=== PATIENT | male | born 1950 | race Caucasian/White ===

== ENCOUNTER 2025-02-07 11:00 | Outpatient (REF) | payer MEDICARE, SELFPAY ==
--- OUTSIDE RECORDS SUMMARY | 2025-02-07 13:56 | XMS_ITS | Clinical Summary ---
Author Organization [facility] Address [address] [place] [address] Phone Care Team Providers Care Technical Services Specialist Name Role Phone Leti Sifuentes MD Primary Care Provider [phone] Allergies No known active allergies Medications Eliquis 5 mg tablet Take 1 tablet (5 mg total) by mouth 2 (two) times a day. Active atorvastatin (LIPITOR) 40 mg tablet Take 1 tablet (40 mg total) by mouth 1 (one) time each day. Active metoprolol succinate (TOPROL-XL) 100 mg 24 hr tablet Take 1 tablet (100 mg total) by mouth 2 (two) times a day. 10/27/2024 Active valsartan (DIOVAN) 320 mg tablet Take 1 tablet (320 mg total) by mouth 1 (one) time each day. 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) 01/26/2025 Encounters Date Type Department Care Team Description 01/29/2025 1:58 PM EDT - 01/29/2025 11:59 PM EDT Hospital Encounter [facility] MRI [address] [place] [address] Monoallelic mutation of HFE gene; Elevated hematocrit Discharge Disposition: Home or Self Care 01/25/2025 Telephone [facility] Hematology Oncology [address] [place] [address] Radha Mccartney DO 01/19/2025 9:45 AM EDT Office Visit [facility] Hematology Oncology [address] [place] [address] Radha Mccartney DO Monoallelic mutation of HFE gene (Primary Dx); Elevated hematocrit 12/26/2024 11:00 AM EDT Office Visit [facility] Hematology Oncology [address] [place] [phone] Radha Mccartney DO Elevated hematocrit (Primary Dx); Elevated ferritin; Secondary polycythemia from Last 3 Months Surgical History Surgery Date Site/Laterality Comments CATARACT EXTRACTION Medical History Medical History Date Comments Hypertension Atrial fibrillation (CMS/HCC V24, CMS/HCC V28) Family History Medical History Relation Name Comments Breast cancer Mother Relation Name Status Comments Father Mother Social History Tobacco Use Types Packs/Day Years Used Date Smoking Tobacco: Never Smokeless Tobacco: Never Alcohol Use Standard Drinks/Week Comments Not Currently 0 (1 standard drink = 0.6 oz pur e alcohol) Sex and Gender Information Value Date Recorded Sex Assigned at Male 06/01/2024 8:34 AM EST Legal Sex Male 8:32 AM EST Gender Identity Male 06/01/2024 8:34 AM EST Sexual Orientation Not on file Obstetrics History Last Filed Vital Signs Vital Sign Reading Time Taken Comments Blood Pressure 142/96 01/19/2025 9:52 AM EDT Pulse 70 01/19/2025 9:52 AM EDT Temperature 36.6 C (97.8 F) 01/19/2025 9:52 AM EDT Respiratory Rate - - Oxygen Saturation 98% 01/19/2025 9:52 AM EDT Inhaled Oxygen Concentration - - Weight 113 kg (250 lb) 01/19/2025 9:52 AM EDT Height 193 cm (6' 4 ) 01/19/2025 9:52 AM EDT Body Mass Index 30.43 01/19/2025 9:52 AM EDT Plan of Treatment Upcoming Encounters Date Type Department Care Team (Late st Contact Info) Description 04/23/2025 9:15 AM EST Office Visit [facility] Hematology Oncology [address] [place] [phone] Radha Mccartney DO [address] [place] [phone] Health Maintenance Due Date Last Done Comments Colorectal Cancer Screening: Colonoscopy 1950 Zoster Vaccines (1 of 2) 09/09/2001 Depression Screening 04/12/2024 Falls Risk Assessment 06/01/2024 Hepatitis C Screening 06/01/2024 Medicare Annual Wellness Visit 06/01/2024 Social Influencers of Health Screening 06/01/2024 COVID-19 Vaccine ( season) 2024 01/15/2024, 01/07/2023, 01/03/2022, Additional history exists Influenza Vaccine (#1) 2024 Hypertension/CHF/CAD Annual BMP Blood Test 01/05/2026 01/05/2025, 01/05/2025, 06/07/2024, Additional history exists RSV Immunization Adult Patients (1 - 1-dose 75+ series) 09/09/2026 Cholesterol Screening (Lipid Panel) 01/05/2030 01/05/2025, 06/07/2024 DTaP,Tdap,and Td Vaccines (3 - Td or Tdap) 06/23/2033 06/24/2023, 06/30/2006 Pneumococcal Vaccine: 50+ Years Completed 05/16/2018, 04/09/2017, 04/09/2017 HIB Vaccines Aged Out No longer eligi ble based on patient's age to complete this topic HPV Vaccines Aged Out No longer eligi ble based on patient's age to complete this topic Hepatitis A Vaccines Aged Out No long er eligible based on patient's age to complete this topic Hepatitis B Vaccines Aged Out No long er eligible based on patient's age to complete this topic IPV Vaccines Aged Out No longer eligi ble based on patient's age to complete this topic MMR Vaccines Aged Out No longer eligi ble based on patient's age to complete this topic Meningococcal ACWY Vaccine Aged Out N o longer eligible based on patient's age to complete this topic Meningococcal B Vaccine Aged Out No l onger eligible based on patient's age to complete this topic RSV Immunization Patients Under 20 months Aged Out No longer eligible based on patient's age to complete this topic Varicella Vaccines Aged Out No longer eligible based on patient's age to complete this topic Procedures Procedure Name Priority Date/Time Associated Diagnosis Comments MR ABDOMEN WO AND W CONTRAST Routine 01/29/2025 2:56 PM EDT Monoallelic mutation of HFE gene Elevated hematocrit CBC WITH AUTO DIFFERENTIAL Routine 12/26/2024 11:28 AM EDT Elevated ferritin Elevated hematocrit JAK2 GENE, V617F MUTATION, QUANTITATIVE, MOLECULAR STUDY Routine 12/26/2024 11:28 AM EDT Elevated ferritin Elevated hematocrit Secondary polycythemia HEMOCHROMATOSIS MUTATION Routine 12/26/2024 11:28 AM EDT Elevated ferritin Elevated hematocrit LACTATE DEHYDROGENASE Routine 12/26/2024 11:28 AM EDT Elevated ferritin Elevated hematocrit FERRITIN Routine 12/26/2024 11:28 AM EDT Elevated ferritin Elevated hematocrit IRON AND TIBC Routine 12/26/2024 11:28 AM EDT Elevated ferritin Elevated hematocrit CBC AND DIFFERENTIAL Routine 12/26/2024 11:28 AM EDT Elevated ferritin Elevated hematocrit from Last 3 Months Results * MR Abdomen wo and w Contrast (01/29/2025 2:56 PM EDT) Anatomical Region Laterality Modality Body Magnetic Resonan ce 02/01/2025 12:5 2 PM EDT Addenda Addendum by Sam Ponce MD on 02/02/2025 3:54 PM EDT Addendum: The patient returned 02/02/25 4 supplementary scanning to allow quantitative iron assessment Axial R2* Region of interest 1-106 Region of interest 2-107 Region of interest 3-89 Average R2*equals 100.60 Liver iron concentration equals 1.619 mg/gm (normal range: 0.17-1.8) Axial T2* Region of interest 1-9.4 Region of interest 2-9.6 Region of interest 3-11.6 Average T2*equals 10.194 Liver iron concentration equals 1.588 mg/gm (normal range: 0.17-1.8) No MRI evidence of elevated quantitative liver iron -------- ADDENDUM -------- Dictated By: Sam Ponce Dictated Date: 02/02/2025 13:18 ET Assigned Physician: Sam Pnoce Reviewed and Electronically Signed By: Sam Ponce Signed Date: 02/02/2025 15:54 ET Workstation ID: [id number] Transcribed By: Self Edit Transcribed Date: 02/02/2025 13:42 ET Impressions 02/01/2025 5:24 PM EDT No imaging evidence of chronic liver disease. No convincing evidence of significant iron overload. Very slight interval increase in signal on the out of phase chemical shift imaging can be seen with mild increased iron. There are no imaging findings to suggest iron overload within the pancreas or myocardium Quantitative iron protocol was not performed. I have discussed the case with the water control supervisor who reports that the patient will be recalled for supplementary quantitative iron sequences -------- FINAL REPORT -------- Dictated By: Sam Ponce Dictated Date: 02/01/2025 12:52 ET Assigned Physician: Sam Ponce Reviewed and Electronically Signed By: Sam Ponce Signed Date: 02/01/2025 17:24 ET Workstation ID: [id number] Transcribed By: Self Edit Transcribed Date: 02/01/2025 13:07 ET Narrative 02/01/2025 5:24 PM EDT EXAMINATION: MRI ABDOMEN WITHOUT AND WITH IV CONTRAST CLINICAL INFORMATION: Hemachromatosis. Evaluate iron deposition in liver COMPARISON: None TECHNIQUE: Anatomic and fluid sensitive MR sequences of the abdomen were obtained on a high-field platform MRCP was not performed. Imaging before and after the IV administration of contrast. Amount of IV contrast: 20 mL Type of contrast: Dotarem Volume of contrast discarded: 0 mL FINDINGS: LIVER: The right lobe of the liver measures 18.0 cm. This is approximately one standard deviation above the mean expected. The liver contour is smooth. There are several circumscribed T2 intense nonenhancing lesions consistent with cysts. No suspicious features. There is no suspicious focal liver lesion. The T2 signal appears relatively normal. There is equivocal slight increase in signal on the out of phase chemical shift imaging. BILIARY TRACT: There is no cholelithiasis. There is no biliary dilation. MRCP: Not performed SPLEEN: The spleen measures 10.0 cm which is the mean expected. No focal abnormality. PANCREAS: The pancreas appears within normal limits in size, contour and signal. Specifically no evidence of iron deposition. ADRENAL GLANDS: Within normal limits KIDNEYS: There are numerous bilateral parapelvic cysts. There is no suspicious renal mass. There are some cortical cysts. GASTROINTESTINAL TRACT: No definite bowel wall thickening. No small bowel dilation. ABDOMINAL WALL: No significant hernia is appreciated. LYMPHOVASCULAR STRUCTURES AND FLUID: There is no abdominal aortic aneurysm. There are no enlarged lymph nodes. There is no free intraperitoneal fluid. MUSCULOSKELETAL: No acute or suspicious osseous abnormality. VISUALIZED LOWER CHEST: No suspicious abnormality. No convincing signal abnormality within the myocardium to suggest iron overload. Procedure Note Sam Ponce MD - 02/01/2025 EXAMINATION: MRI ABDOMEN WITHOUT AND WITH IV CONTRAST CLINICAL INFORMATION: Hemachromatosis. Evaluate iron deposition in liver COMPARISON: None TECHNIQUE: Anatomic and fluid sensitive MR sequences of the abdomen were obtained alvaro high- field platform MRCP was not performed. Imaging before and after the IV administration of contrast. Amount of IV contrast: 20 mL Type of contrast: Dotarem Volume of contrast discarded: 0 mL FINDINGS: LIVER: The right lobe of the liver measures 18.0 cm. This isapproximately one standard deviation above the mean expected. The livercontour is smooth. There are several circumscribed T2 intense nonenhancing lesions consistentwith cysts. No suspicious features. There is no suspicious focal liver lesion. The T2 signal appears relatively normal. There is equivocal slightincrease in signal on the out of phase chemical shift imaging. BILIARY TRACT: There is no cholelithiasis. There is no biliarydilation. MRCP: Not performed SPLEEN: The spleen measures 10.0 cm which is the mean expected. No focalabnormality. PANCREAS: The pancreas appears within normal limits in size, contour andsignal. Specifically no evidence of iron deposition. ADRENAL GLANDS: Within normal limits KIDNEYS: There are numerous bilateral parapelvic cysts. There is nosuspicious renal mass. There are some cortical cysts. GASTROINTESTINAL TRACT: No definite bowel wall thickening. No small boweldilation. ABDOMINAL WALL: No significant hernia is appreciated. LYMPHOVASCULAR STRUCTURES AND FLUID: There is no abdominal aorticaneurysm. There are no enlarged lymph nodes. There is no freeintraperitoneal fluid. MUSCULOSKELETAL: No acute or suspicious osseous abnormality. VISUALIZED LOWER CHEST: No suspicious abnormality. No convincing signalabnormality within the myocardium to suggest iron overload. IMPRESSION: No imaging evidence of chronic liver disease. No convincing evidence of significant iron overload. Very slight intervalincrease in signal on the out of phase chemical shift imaging can be seenwith mild increased iron. There are no imaging findings to suggest iron overload within the pancreasor myocardium Quantitative iron protocol was not performed. I have discussed the casewith the water control supervisor who reports that the patient will be recalled forsupplementary quantitative iron sequences -------- FINAL REPORT -------- Dictated By: Sam Ponce Dictated Date: 02/01/2025 12:52 ET Assigned Physician: Sam Ponce Reviewed and Electronically Signed By: Sam Ponce Signed Date: 02/01/2025 17:24 ET Workstation ID: [id number] Transcribed By: Self Edit Transcribed Date: 02/01/2025 13:07 ET Radha Mccartney DO [facility] MRI PROCEDURES Ed ited Result - Final * JAK2 gene, V617F mutation, quantitative, molecular study (12/26/2024 11:28 AM EDT) Pathologist [facility] JAK2 (V617F) Mutation Not detected Not detected 12/29/2024 1:59 PM EDT [facility] WBC Percent with V617F Mutation <0.1 <0.1 % 12/29/2024 1:59 PM EDT [facility] Comment: This procedure uses real-time polymerase chain reaction amplification and detection to quantify the percentage of white blood cells containing the V617F (G>T at position 617) point mutation in the autoinhibitory pseudokinase domain of the JAK2 protein. The lower limit of quantitation is 0.1% (1 in 1000 cells). A Not detected result does not preclude the presence of this or another point mutation in this gene. This test uses commercial reagents that have not been approved or cleared by the FDA. The FDA has determined that such clearance or approval is not necessary. The performance characteristics of this procedure were determined by [employer]. This test is performed pursuant to a license agreement with [employer] Test performed at [facility] [employer] [facility], [facility] [place] [address] Tisha Dickson MD, PhD - [employer] Operator Blood Venous blood specimen / Unknown Venipuncture / Unknown 12/26/2024 11:28 AM EDT 12/26/2024 1:45 PM EDT Radha Mccartney DO LAB MOLECULAR DIAGNOS TICS ORDERABLES Final Result [facility] [address] [place] [address] * CBC auto differential (12/26/2024 11:28 AM EDT) WBC 7.8 4.8 - 10.8 K/mcL LAB HEMETOLOGY METHOD 12/26/2024 1:53 PM EDT [facility] RBC 5.50 4.50 - 5.50 M/mcL LAB HEMETOLOGY METHOD 12/26/2024 1:53 PM EDT [facility] Hemoglobin 17.3 13.5 - 17.5 g/dL LAB HEMETOLOGY METHOD 12/26/2024 1:53 PM EDT [facility] Hematocrit 51.0 42.0 - 54.0 % LAB HEMETOLOGY METHOD 12/26/2024 1:53 PM EDT [facility] MCV 92.7 79.0 - 98.0 FL LAB HEMETOLOGY METHOD 12/26/2024 1:53 PM EDT [facility] MCH 31.5 27.0 - 32.0 pcg LAB HEMETOLOGY METHOD 12/26/2024 1:53 PM EDT [facility] MCHC 33.9 32.0 - 37.0 g/dL LAB HEMETOLOGY METHOD 12/26/2024 1:53 PM EDT [facility] RDW 12.4 11.0 - 15.0 % LAB HEMETOLOGY METHOD 12/26/2024 1:53 PM EDT [facility] Platelets 220 130 - 400 K/mcL LAB HEMETOLOGY METHOD 12/26/2024 1:53 PM EDT [facility] MPV 9.0 7.0 - 11.0 FL LAB [facility] 0.0 <1.0 % [facility] NR[facility] Absolute 0.00 <0.10 K/mcL LAB [facility]Y METHOD [facility]24 [facility] Neutrophils Relative 67.8 % LAB HEMETOLOGY METHOD 12/26/2024 1:53 PM [facility] Lymphocytes Relative 21.2 % LAB HEMETOLOGY METHOD 12/26/2024 1:53 PM [facility] Monocytes Relative 9.7 % LAB HEMETOLOGY METHOD 12/26/2024 1:53 PM [facility] Eosinophils Relative 0.4 % LAB HEMETOLOGY METHOD 12/26/2024 1:53 PM [facility] Basophils Relative 0.5 % LAB HEMETOLOGY METHOD 12/26/2024 1:53 PM [facility] Immature Granulocytes Relative 0.4 % LAB [facility]Y [facility] Neutrophils Absolute 5.31 1.50 - 7.00 K/mcL LAB HEMETOLOGY METHOD [facility]/26[facility]24 [facility] Lymphocytes Absolute 1.66 1.00 - 5.00 K/mcL LAB HEMETOLOGY METHOD 12/26/2024 1:53 PM [facility] Monocytes Absolute 0.76 0.20 - 1.00 K/mcL LAB [facility]EM[facility]Y METHOD [facility]24 [facility] Eosinophils Absolute 0.03 0.00 - 0.50 K/mcL LAB HEMETOLOGY METHOD 12/26/2024 1:53 PM EDT [facility] Basophils Absolute 0.04 0.00 - 0.20 K/mcL LAB HEMETOLOGY METHOD 12/26/2024 1:53 PM EDT [facility] Immature Granulocytes Absolute 0.03 0.00 - 0.03 K/mcL LAB HEMETOLOGY METHOD 12/26/2024 1:53 PM EDT [facility] Blood Venous blood specimen / Unknown Venipuncture / Unknown 12/26/2024 11:28 AM EDT 12/26/2024 1:45 PM EDT us Radha Cookie Mccartney DO LAB BLOOD ORDERABLES Final Result [facility] [address] [place] [address], * Hemochromatosis mutation (12/26/2024 11:28 AM EDT) Hereditary Hemochromatosis See Below 01/05/2025 10:38 PM EDT [facility] Comment: RESULT: POSITIVE FOR ONE HFE GENE PATHOGENIC VARIANT: C282Y (HETEROZYGOTE) Interpretation: One copy of the C282Y pathogenic variant in the HFE gene was detected. This patient is negative for the H63D pathogenic variant. Individuals with this genotype may have elevated serum transferrin iron saturation levels. This result reduces the likelihood of hereditary hemochromatosis (HH). However, it does not rule out the presence of other pathogenic variants within the HFE gene or a diagnosis of HH. The risk of this individual to carry an HFE pathogenic variant other than those tested in this assay depends greatly on family and clinical history as well as ethnicity. This assay does not test for other primary or secondary iron overload disorders. Consider genetic counseling and DNA testing for at-risk family members. Laboratory results and submitted clinical information reviewed by Rabia Hills, PhD, [facility]. DETAILED ASSAY INFORMATION: Hereditary hemochromatosis (HH) is an autosomal recessive disorder of iron metabolism that can result in iron overload and potential organ failure. It is one of the most common genetic disorders in individuals of - ancestry, with an estimated carrier frequency of 10%. HH is caused by pathogenic variants in the HFE gene. Most individuals with HH (60-90%) are homozygous for the C282Y pathogenic variant. A smaller percentage of affected individuals are either compound heterozygous for the C282Y and H63D pathogenic variants (3%-8%), or homozygous for the H63D pathogenic variant (approximately 1%). METHODOLOGY: This assay detects two pathogenic variants in the HFE gene, C282Y (NM 538474.2: c.845G>A, p.Tpm508Rmf) and H63D (NM 213385.2: c.187C>G, p.Vtv97Lpt), that are commonly associated with HH. These variants are detected by multiplex-polymerase chain reaction (PCR) amplification, followed by restriction enzyme digestion and capillary electrophoresis. LIMITATIONS: This assay does not detect other pathogenic variants in the HFE gene that may be associated with HH. Although rare, false positive or false negative results may occur. All results should be interpreted in the context of clinical findings, relevant history, and other laboratory data. Health care providers, please contact your local [facility] genetic counselor or call [phone] ( ) for assistance with the interpretation of these results. This test was developed and its analytical performance characteristics have been determined by [facility]. It has not been cleared or approved by FDA. This assay has been validated pursuant to the CLIA regulations and is used for clinical purposes. For more information, please refer to http://education.[employer]Card.[employer]Linxx/faq/hemochromatosis. (This link is being provided for informational/educational purposes only.) A portion of the testing was performed at [facility]. Reviewed and signed by Laboratory results and submitted clinical information reviewed by Rabia Hills, PhD, [facility], Signed on 01/05/2025 at 16:29 Test Performed at: [facility] [address] [place] [address] Jennifer Barbosa MD, PhD, CLIF Blood Venous blood specimen / Unknown Venipuncture / Unknown 12/26/2024 11:28 AM EDT 12/26/2024 1:45 PM EDT us Radha Mccartney DO LAB MOLECULAR DIAGNOS TICS ORDERABLES Final Result [facility] [address] [place] [address] * Iron and TIBC (12/26/2024 11:28 AM EDT) Iron 158 50 - 160 mcg/dL LAB CHEMISTRY METHOD 12/26/2024 2:06 PM EDT [facility] TIBC 349 250 - 450 mcg/dL LAB CHEMISTRY METHOD 12/26/2024 2:06 PM EDT [facility] Iron Saturation 45 20 - 50 % LAB CHEMISTRY METHOD 12/26/2024 2:06 PM EDT [facility] Blood Venous blood specimen / Unknown Venipuncture / Unknown 12/26/2024 11:28 AM EDT 12/26/2024 1:45 PM EDT us Radha Mccartney DO LAB BLOOD ORDERABLES Final Result Performing Organization Address [facility]/ZIP Co de Phone Number [facility] [address] [place] [address], * Lactate dehydrogenase (12/26/2024 11:28 AM EDT) LDH 221 120 - 246 unit/L LAB CHEMISTRY METHOD 12/26/2024 2:06 PM EDT [facility] Blood Venous blood specimen / Unknown Venipuncture / Unknown 12/26/2024 11:28 AM EDT 12/26/2024 1:45 PM EDT us Radha Mccartney DO LAB BLOOD ORDERABLES Final Result [facility] [address] [place] [address], [place] [phone] * Ferritin (12/26/2024 11:28 AM EDT) Ferritin 360 26 - 388 ng/mL LAB CHEMISTRY METHOD 12/26/2024 2:06 PM EDT [facility] Blood Venous blood specimen / Unknown Venipuncture / Unknown 12/26/2024 11:28 AM EDT 12/26/2024 1:45 PM EDT us Radha Mccartney DO LAB BLOOD ORDERABLES Final Result [facility] [address] [place] [address], [place] [phone] from Last 3 Months Insurance MEDICARE [facility] Care Teams Technical Services Specialist Relationship Specialty Start Date End Date Leti Sifuentes MD [address] [place] [address] PCP - General Internal Medicine 06/01/24
== END 2025-02-07 11:01 | disposition home or self-care (01) ==
LOC: HO.BBR 11:00
PROVIDERS: PCP Internal Medicine; Visit Provider Internal Medicine
DX: Z13.89 Encounter for screening for other disorder (principal)